=== PATIENT | male | born 1995 | race Caucasian/White ===

== ENCOUNTER 2022-06-19 14:54 | Inpatient (IN) | payer OTHER ==
[~2022-06-19] VITALS: Ht 170.2 cm; Wt 72.0 kg
[2022-06-19] MEDS ORDERED: GABA-1201 PO (16:52)
[2022-06-19 17:14] LABS: BASOPHILS % (AUTO) 0.2 % (0.0-2.0); EOSINOPHILS % (AUTO) 0.6 % (1.0-6.0); HEMATOCRIT 46.7 % (41-53); HEMOGLOBIN 15.6 g/dL (13.5-17.5); LYMPHOCYTES # (AUTO) 0.8 K/uL (1.0-4.8); LYMPHOCYTES % (AUTO) 8.4 % (22.0-44.0); MEAN CORPUSCULAR HEMOGLOBIN 29.7 pg (26.0-34.0); MEAN CORPUSCULAR HGB CONC 33.3 G/dL (31.0-37.0); MEAN CORPUSCULAR VOLUME 89 fL (80-100); MONOCYTES # (AUTO) 0.6 K/uL (0.1-1.0); MONOCYTES % (AUTO) 6.5 % (2.0-9.0); NEUTROPHILS # (AUTO) 8.1 K/uL (1.8-7.7); NEUTROPHILS % (AUTO) 84.3 % (40.0-70.0); PLATELET COUNT (AUTO) 244 K/uL (150-450); RED BLOOD CELL COUNT(AUTO) 5.23 MIL/uL (4.50-5.90); RED CELL DISTRIBUTION WIDTH 13.5 % (11.5-14.5)
[2022-06-19 17:23] LABS: ANION GAP 9 mmol/L (8-16); CALCIUM, TOTAL 8.9 mg/dL (8.8-10.5); CARBON DIOXIDE 26 mmol/L (22-29); CHLORIDE 101 mmol/L (98-107); CREATININE 0.82 mg/dL (0.60-1.30); GLOMERULAR FILTR. RATE CALC > 60 mL/min (>60); GLUCOSE,RANDOM 104 mg/dL (70-110); POTASSIUM 3.7 mmol/L (3.5-5.1); SODIUM SERUM 136 mmol/L (136-145); UREA NITROGEN, BLOOD 9 mg/dL (7-18)
[2022-06-19 17:29] LABS: ALANINE AMINOTRANSFERASE 35 U/L (12-78); ALBUMIN 4.3 g/dL (3.4-5.0); ALKALINE PHOSPHATASE 82 U/L (46-116); ASPARTATE AMINOTRANSFERASE 20 U/L (15-37); BILIRUBIN,TOTAL 1.4 mg/dL (0.1-1.0); TOTAL PROTEIN, SERUM 7.8 g/dL (6.4-8.2)
[2022-06-19 17:54] LABS: LIPASE 74 U/L (73-393)
[2022-06-19 18:58] LABS: COVID AG,FIA SOURCE NASAL SWAB
[2022-06-19 20:32] VITALS: BP 128/78
[2022-06-19] MEDS ORDERED: PETROLATUM,WHITE 28 GM JELLY TP PRN (22:00)
[2022-06-19] MEDS ORDERED: CloNIDine HCL 0.1 MG TABLET PO PRN (22:00)
[2022-06-19] MEDS ORDERED: GuaiFENesin/D-METHORPHAN [SUGAR-FREE] 200-20MG/10 ML SYRUP UDCUP PO PRN (22:00)
[2022-06-19] MEDS ORDERED: ALBUTEROL SULFATE HFA 90 MCG/PUFF 8 GM INHALER IH PRN (22:00)
[2022-06-19] MEDS ORDERED: IBUPROFEN 400 MG TABLET PO PRN (22:00)
[2022-06-19] MEDS ORDERED: ACETAMINOPHEN 325 MG TABLET PO PRN (22:00)
[2022-06-19] MEDS ORDERED: NICOTINE 14 MG/24 HOUR PATCH TD PRN (22:00)
[2022-06-19] MEDS ORDERED: LOPERAMIDE HCL 2 MG CAPSULE PO PRN (22:00)
[2022-06-19] MEDS ORDERED: DOCUSATE SODIUM 100 MG CAPSULE PO PRN (22:00)
[2022-06-19] MEDS ORDERED: ONDANSETRON HCL 4 MG TABLET PO PRN (22:00)
[2022-06-19] MEDS ORDERED: MAG HYDROX/AL HYDROX/SIMETH ES 30 ML SUSPENSION UDCUP PO PRN (22:00)
[2022-06-19] MEDS ORDERED: MAGNESIUM HYDROXIDE SUSPENSION 30 ML UDCUP PO PRN (22:00)
[2022-06-20 04:40] VITALS: BP 112/60
[2022-06-20 07:53] VITALS: BP 122/73
[2022-06-20 15:05] VITALS: BP 118/74
[2022-06-20 19:13] VITALS: BP 118/69
[2022-06-21 05:01] VITALS: BP 110/60
[2022-06-21 08:18] VITALS: BP 121/71
[2022-06-21] MEDS: GABAPENTIN 300 MG CAPSULE PO SCH ×2 (11:15→20:12)
[2022-06-21] MEDS: SERTRALINE HCL 50 MG TABLET PO SCH (11:15)
[2022-06-21 15:02] VITALS: BP 118/72
[2022-06-21 19:45] VITALS: BP 120/72
[2022-06-22 05:21] VITALS: BP 116/64
[2022-06-22 08:04] VITALS: BP 114/68
[2022-06-22] MEDS: SERTRALINE HCL 50 MG TABLET PO SCH (08:37)
[2022-06-22] MEDS: GABAPENTIN 300 MG CAPSULE PO SCH (08:37)
== END 2022-06-22 12:20 | DRG 885 ==
LOC: EMS 14:58 → 6S 20:19
PROVIDERS: ADMIT Internal Medicine; ATTEND Internal Medicine
DX: F33.2 Major depressive disorder, recurrent severe without psychotic features (principal); R45.851 Suicidal ideations; F41.9 Anxiety disorder, unspecified; Z20.822 Contact with and (suspected) exposure to COVID-19; Z79.899 Other long term (current) drug therapy
CPT/HCPCS: 80053; 83690; 85025; 99285; G0480